=== PATIENT | male | born 1955 | race Caucasian/White ===

== ENCOUNTER → 2023-05-23 14:14 | Outpatient (CLI) | payer OTHER, SELFPAY ==
--- NOTE | ~2023-05-23 | MR_ITS ---
EXAMINATION: MR lumbar spine wo con DATE: 05/23/2023 14:46 INDICATION: Lumbar radiculopathy. Low back pain. TECHNIQUE: Magnetic resonance imaging (MRI) of the lumbar spine was performed without intravenous con trast. COMPARISON: None FINDINGS: There is 4 degrees dextrocurvature of thoracolumbar spine. Vertebral body heights are carol[place] l. There is mildly decreased disc height at L2-L3 and moderately decreased disc height at L4-L5 and L 5-S1. The distal spinal cord signal intensity is normal. The conus medullaris is at T12-L1. The follo wing disc levels are specifically discussed: L1-L2: The disc does not extend beyond the endplate margin. There is moderate bilateral facet joint o steoarthritis. There is no neural foraminal stenosis. There is no central canal stenosis. L2-L3: The disc is bulging and has an annular fissure. There is mild bilateral facet joint osteoarthr itis. There is mild bilateral neural foraminal stenosis. There is mild central canal stenosis. L3-L4: The disc does not extend beyond the endplate margin. There is mild bilateral facet joint osteo arthritis. There is no neural foraminal stenosis. There is no central canal stenosis. L4-L5: The disc is bulging with superimposed right subarticular zone extrusion with 11 mm superior ex tension and and 15 mm inferior extension. There is mass effect on the right L4 and L5 nerve roots. Th ere is severe bilateral facet joint osteoarthritis. There is moderate bilateral neural foraminal sten osis. There is mild central canal stenosis. There is severe stenosis of right lateral recess. L5-S1: The disc is bulging with superimposed central extrusion. There is severe right and moderate le ft facet joint osteoarthritis. There is mild bilateral neural foraminal stenosis. There is mild centr al canal stenosis. IMPRESSION: 1. Moderate lumbar spondylosis. Of note, an extrusion exerts mass effect on the right L4 and L5 nerve roots. Reviewed, dictated and finalized at location E.
== END ==
DX: M43.06 Spondylolysis, lumbar region (principal); M54.16 Radiculopathy, lumbar region
CPT/HCPCS: 72148